=== PATIENT | male | born 1955 | race Caucasian/White ===

== ENCOUNTER 2016-05-15 06:17 | Inpatient (IN) | payer BC ==
[2016-04-16 12:51] VITALS: BMI 38.0
[2016-04-16 13:03] LABS: BASO % 0.5 %; BASO ABS # 0.04 K/uL (0-0.2); COMPLETE YES; EOS % 1.5 %; IG% 0.2 %; LYMPH % 25.2 %; LYMPH ABS # 2.18 K/uL (1.2-3.4); MEAN CELL VOLUME 92.3 fL (80-100); MEAN CORPUSCULAR HGB CONC 34.7 g/dl (32-36); MEAN PLATELET VOLUME 9.3 fL (7.4-10.4); MONO % 8.9 %; NEUT % 63.7 %; PLATELET COUNT 231 K/uL (130-400); RED BLOOD COUNT 4.66 M/uL (4.7-6.1); WHITE BLOOD COUNT 8.64 K/uL (4.8-10.8)
--- NOTE | 2016-04-16 13:20 | PAT Medication Instructions ---
Service Date Apr 16, 2016. Current Home Medication List Acetaminophen (Tylenol), 1,000 MG PO BID Aspirin (Aspirin Ec), 81 MG PO QPM Atenolol (Tenormin), 100 MG PO BID Etodolac (Etodolac), 1 TAB PO BID Fish Oil ([employer]euser-3), 1 CAP PO BID Erqpzrjscmy-Dqzodsqrzmd-Ago C- (Glucosamine Chondroitin), 1 TAB PO QPM Hctz/Losartan (Hyzaar 25MG/100MG), 1 TAB PO QPM Omeprazole (Prilosec), 20 MG PO QPM Simvastatin (Zocor), 80 MG PO QPM Medication Instructions For Your Scheduled Surgery - Hold the following medications 2 weeks prior to surgery: Fish Oil (We[employer]haeuser-3), 1 CAP PO BID Bjpciyepxxl-Hhlibniiwez-Eug C- (Glucosamine Chondroitin), 1 TAB PO QPM - Hold the following medications the morning of surgery: Etodolac (Etodolac), 1 TAB PO BID (otherwise okay to continue per surgeon) - Take the following medications the morning of surgery with a sip of water OTHERWISE NOTHING TO EAT OR DRINK AFTER MIDNIGHT: Atenolol (Tenormin), 100 MG PO BID Acetaminophen (Tylenol), 1,000 MG PO BID (okay to take if needed up to 4 hours prior to surgery) - Take the following medications as scheduled the night before surgery: Omeprazole (Prilosec), 20 MG PO QPM Simvastatin (Zocor), 80 MG PO QPM Aspirin (Aspirin Ec), 81 MG PO QPM Atenolol (Tenormin), 100 MG PO BID Acetaminophen (Tylenol), 1,000 MG PO BID - DO NOT TAKE the following medications the night before surgery: Hctz/Losartan (Hyzaar 25MG/100MG), 1 TAB PO QPM If you have any questions please call us at [phone] (Melody Ruggiero PA-C ) or [phone] or [phone]
[2016-04-16 13:24] LABS: PROTHROMBIN TIME (PATIENT) 10.8 SECONDS (9.0-12.0)
--- NOTE | 2016-04-16 13:33 | DIAGNOSTIC IMAGING REPORT ---
CHEST 2 VIEWS ROUTINE CLINICAL HISTORY: Preoperative evaluation. COMPARISON STUDY: No previous studies for comparison. FINDINGS: Lung volumes are normal. Lungs are clear. There is no pneumothorax or pleural effusion. There is mild cardiomegaly. Pulmonary vascularity is normal. IMPRESSION: 1. No acute cardiopulmonary findings. 2. Mild cardiomegaly. Electronically signed by: David Demarco M.D. 04/16/2016 1:32 PM
[2016-04-16 13:45] LABS: ESTIMATED AVERAGE GLUCOSE 123 mg/dl; HA1C FLAG Normal (Normal)
[2016-04-16 13:52] LABS: BUN/CREATININE RATIO 15.2 (10-20); CREATININE 0.85 mg/dl (0.60-1.40)
[2016-04-16 14:04] LABS: CALCIUM 9.7 mg/dl (8.5-10.1)
--- NOTE | 2016-05-11 19:57 | HISTORY & PHYSICAL EXAMINATION ---
DATE OF ADMISSION: 05/15/2016 PREOPERATIVE HISTORY AND PHYSICAL EXAMINATION SUBJECTIVE CHIEF COMPLAINT: Left knee pain. HISTORY OF PRESENT ILLNESS: The patient is a 60-year-old male who presents with left knee pain that has been chronic and nontraumatic. He states that the symptoms are moderate to severe and aching in nature. He describes the pain at its lowest to 5/10. It is made worse with his daily activities. It is relieved with rest. He has been treated with cortisone injection, physical therapy and nonsteroidal inflammatory and he has failed these conservative therapies. PAST MEDICAL HISTORY: Significant for hypertension, hypercholesterolemia, GERD, and obesity. PAST SURGICAL HISTORY: He denies any surgeries in the past. SOCIAL HISTORY: He drinks 4-5 alcoholic beverages a day. He denies smoking or tobacco use. He denies IV drug use. He lives in a [address]. FAMILY HISTORY: Father has a history of coronary artery disease. MEDICATIONS: He is on atenolol 100 mg b.i.d., etodolac 500 mg b.i.d., simvastatin daily, omeprazole 20 mg daily, Hyzaar 100/25 daily, glucosamine 2 tablets daily, fish oil, aspirin 81 mg 1 tab daily. ALLERGIES: He has no known drug allergies. REVIEW OF SYSTEMS: Denies fevers, chills, headaches, weight loss, double vision, blurry vision, sore throat, numbness, tingling, tired, thirsty, hot and cold intolerance, abdominal pain, nausea, vomiting, diarrhea, heartburn, chest pain swelling to the legs or feet, frequency going to the bathroom, pain or burning with urination or incontinence, wheezing, cough, shortness of breath, depression, thoughts to harm themselves or others, anxiety or nervousness OBJECTIVE: GENERAL APPEARANCE: The patient is a 60-year-old male, appearing in no acute distress; well nourished, well dressed, well groomed. He is awake, alert and oriented x3. VITAL SIGNS: Height - he is 5 feet 8 inches. blood pressure 130/76. HEENT: Extraocular movements are intact. PERRLA No septal deviation. NECK: Supple, no lymphadenopathy, no JVD, no thyromegaly. HEART: Regular rate and rhythm. No murmurs or gallops. LUNGS: Clear to auscultation with no wheezing or rhonchi. ABDOMEN: Soft, nontender, nondistended, positive bowel sounds. No hepatosplenomegaly. EXTREMITIES: Paying particular attention to the left knee of the patient. He has pain along the medial joint line. He is able to extend to 0 degrees, flex to 120 degrees. His strength is 4/5, compared bilaterally. He has mildly positive valgus stress due to medial joint line narrowing. NEUROLOGIC: Cranial nerves II-XII are intact. Pulses were compared bilaterally and were equal IMAGING: X-ray of the knees shows advanced osteoarthritis of the medial joint compartment of both knees and near bone on bone findings, periarticular osteophyte formation and subchondral sclerosis. IMPRESSION: Severe endstage osteoarthritis of left knee PLAN: The patient is scheduled for a left total knee arthroplasty. He has failed conservative therapy such as cortisone injections, nonsteroidal anti-inflammatories, physical therapy, and viscosupplementation. He notes that the knee has decreased his quality of life and he wishes to advance with the surgery. Risks and benefits were discussed with the patient and included but not limited to blood clot, nerve damage, blood vessel damage, infection, failure to relieve all symptoms, revision surgeries and anesthesia risks. The patient understands these risks. All questions were answered to his satisfaction and he wishes to proceed MTDD
[~2016-05-15] VITALS: Ht 172.7 cm; Wt 113.8 kg
[2016-05-15] VITALS (10 sets, daily range): BP systolic 127–173; BP diastolic 66–95; PULSE 53–65; TEMP 34.7–36.7; O2SAT 94–98; Ht 172.7 cm; Wt 113.8 kg
[2016-05-15] MEDS: TRANEXAMIC ACID INJ 1,000 MG in SODIUM CHLORIDE 0.9% 100ML 100 ML IV SCH ×2 (06:00→06:30)
[~2016-05-15 06:17] MED LIST: ACET-1256 PO; ACETAMINOPHEN 500 MG TAB PO SCH; ASPI81TA28 PO; ATEN-175 PO; CEFAZOLIN 2000 MG/60 ML D5W 60 ML IV SCH; CeleBREX 200 MG CAP PO SCH; DEXAMETHASONE 4 MG TAB PO SCH; ETOD500T95 PO; FAMOTIDINE 20 MG TAB PO SCH; GABAPENTIN 300 MG CAP PO SCH; GLUCTAB7 PO; HYZ/10015 PO; LACTATED RINGER'S 1000ML IV SCH; LACTATED RINGER'S 500 ML IV SCH; METOCLOPRAMIDE HCL 10 MG TAB PO SCH; OMEG10007 PO; OXYCODONE HCL 10 MG TABCR (OXYCONTIN) PO SCH; PRLSR20 PO; ROPIVACAINE 5MG/ML 30 ML 150 MG, BUPIVACAINE/EPINEPHR 0.5% MPF 30 ML, KETOROLAC TROMETH... INFIL SCH; SIMV80TA2 PO
[2016-05-15] MEDS ORDERED: ORTHO JOINT ANESTHETIC ONE (06:52)
[2016-05-15] MEDS ORDERED: MIDAZOLAM HCL 1 MG/ML 2ML VIAL ONE ×2 (06:53→10:47)
[2016-05-15] MEDS ORDERED: FENTANYL CITRATE INJ 50 MCG/1 ML 2 ML VIAL ONE (06:54)
--- NOTE | 2016-05-15 07:00 | History & Physical Bridge Note ---
H&P Re-Evaluation Bridge Note: I have examined the patient, reviewed the History & Physical and in the interval since the performance of the History & Physical I have noted the following changes of clinical significance: No changes noted
[2016-05-15] MEDS ORDERED: BUPIVACAINE 0.5 % 5 MG/1 ML PF 10ML VIAL ONE (07:19)
[2016-05-15] MEDS ORDERED: BUPIVACAINE 0.25% 30 ML VIAL ONE (07:19)
[2016-05-15] MEDS ORDERED: HYDROmorphone INJ 2 MG/ML SYR/VIAL IV PRN (07:45)
[2016-05-15] MEDS ORDERED: EpHEDrine SULFATE INJ 50 MG/ML AMP IV PRN (07:45)
[2016-05-15] MEDS ORDERED: PHENYLEPHRINE 100MCG/ML 5ML SYR IV PRN (07:45)
[2016-05-15] MEDS ORDERED: ATROPINE SULFATE 0.1 MG/ML 5ML SYR IV PRN (07:45)
[2016-05-15] MEDS ORDERED: ONDANSETRON INJ 2 MG/ML 2 ML VIAL IV PRN ×2 (07:45→11:30)
[2016-05-15] MEDS ORDERED: PROPOFOL IV EMULSION 10 MG/ML 20 ML VIAL IV ONE (10:09)
[2016-05-15] MEDS ORDERED: BACITRACIN 50000 UNIT VIAL IR ONE (10:19)
[2016-05-15] MEDS ORDERED: POVIDONE-IODINE OP SOLN 30 ML BTL TOP ONE (10:47)
[2016-05-15] MEDS ORDERED: MAGNESIUM HYDROXIDE SUSP 30 ML UDC PO PRN (11:30)
[2016-05-15] MEDS ORDERED: ALUMINUM/MAGNESIUM/SIMETH (MAALOX MAX) 30 ML UDC PO PRN (11:30)
[2016-05-15] MEDS ORDERED: TAMSULOSIN HCL 0.4 MG CAP PO PRN (11:30)
[2016-05-15] MEDS ORDERED: ZOLPIDEM TARTRATE 5 MG TAB PO PRN (11:30)
[2016-05-15] MEDS ORDERED: DiphenhydrAMINE HCL 50 MG/ML VIAL IV PRN (11:30)
[2016-05-15] MEDS ORDERED: MoRPHine SULFATE 2 MG/ML CARP IV PRN (11:30)
[2016-05-15] MEDS ORDERED: BISACODYL 10 MG SUPP PR PRN (11:30)
--- NOTE | 2016-05-15 11:48 | DIAGNOSTIC IMAGING REPORT ---
LEFT KNEE 2 VIEWS History: Left total knee arthroplasty. Degenerative arthritis. Postop. FINDINGS: The patient is status post a left total knee arthroplasty. The hardware is intact. No fracture or dislocation. Skin leon and surgical drains are in place. IMPRESSION: Left total knee arthroplasty. No evidence for hardware complication. Electronically signed by: Luis Manuel Patel M.D. 05/15/2016 11:46 AM Dictated Date/Time: 05/15/2016 11:46 AM
--- NOTE | 2016-05-15 12:27 | [facility] Post Operative Brief Note ---
Immediate Operative Summary Operative Date May 15, 2016. Pre-Operative Diagnosis Severe end stage osteoarthritis of left knee Post-Operative Diagnosis Severe end stage osteoarthritis of left knee Procedure(s) Performed Left Total Knee Arthroplasty Surgeon Dr. Enriquez Cosmetic Counselor Surgeon(s) JOHNNA De Leon Estimated Blood Loss 50ml Findings above Specimens A) Left knee- bone & tissue Drains 1 hemovac Anesthesia spinal Complication(s) None Disposition Recovery Room / PACU
[2016-05-15] MEDS ORDERED: MoRPHine SULFATE 10 MG/ML CARP/VIAL IV PRN (12:30)
[2016-05-15] MEDS ORDERED: MoRPHine SULFATE 4 MG/ML 1 ML CARP\\VIAL IV PRN (12:30)
--- NOTE | 2016-05-15 12:34 | Anesthesiology Progress Note ---
Anesthesia Post Op Note Date & Time May 15, 2016 at 12:33 Vital Signs Pain Intensity: 0.0 Vital Signs Past 12 Hours Date Time Temp Pulse Resp B/P Pulse Ox O2 Delivery O2 Flow Rate FiO2 05/15/16 12:22 34.7 53 20 147/81 98 Nasal Cannula 2.0 05/15/16 12:19 97 Nasal Cannula 2.0 05/15/16 12:17 Nasal Cannula 2.0 05/15/16 11:50 36.5 56 18 153/76 97 Nasal Cannula 2.0 05/15/16 11:30 36.0 61 23 135/76 96 Nasal Cannula 2 05/15/16 11:20 60 22 130/76 96 Nasal Cannula 2 05/15/16 11:12 36.7 65 20 131/74 97 Nasal Cannula 2 05/15/16 06:49 36.4 56 20 173/95 95 Room Air Notes Mental Status: alert / awake / arousable, participated in evaluation Pt Amnestic to Procedure: Yes Nausea / Vomiting: adequately controlled Pain: adequately controlled Airway Patency, RR, SpO2: stable & adequate BP & HR: stable & adequate Hydration State: stable & adequate Anesthetic Complications: no major complications apparent
[2016-05-15] MEDS: D5W AND 1/2NSS + 20MEQ KCL 1,000 ML IV SCH ×2 (12:48→22:31)
[2016-05-15] MEDS: FERROUS GLUCONATE 324 MG TAB PO SCH ×2 (13:14→17:39)
[2016-05-15] MEDS: ACETAMINOPHEN 500 MG TAB PO SCH ×2 (13:56→22:14)
--- NOTE | 2016-05-15 14:44 | OPERATIVE REPORT ---
DATE OF OPERATION: 05/15/2016 PREOPERATIVE DIAGNOSIS: Left knee degenerative joint disease. POSTOPERATIVE DIAGNOSIS: Same. PROCEDURE: Left total knee arthroplasty. SURGEON: Dr. Remington Enriquez. PROOF PRESS OPERATOR: JOHNNA De Leon and Willam Garcia PA-C ANESTHESIA: Spinal with adductor canal block. IMPLANTS: Zamudio \T\ Nephew Journey version II, femur 6, tibia 6, poly 9, and patella 35 oval. DRAINS: One medium Hemovac. ESTIMATED BLOOD LOSS: 50 mL. COMPLICATIONS: None. INDICATIONS: The patient is a 60-year-old male with long-standing pain in left knee. He has failed conservative measures including cortisone injection, physical therapy, and anti-inflammatory medications. X-rays demonstrated a significant varus deformity of the left knee and adkn-fq-veic medial compartment. With failing conservative measures, he wished to proceed with left total knee arthroplasty. Risks, benefits and alternatives to surgery including but, not limited to infection, DVT, pain, stiffness, need for revision surgery, failure to relieve all symptoms, damage to blood vessels, damage to nerves, and risks of anesthesia were discussed with the patient and he wished to proceed. DESCRIPTION OF PROCEDURE: The patient was identified, laterality was confirmed and marked. He received a preoperative antibiotic as well as a spinal anesthetic and an adductor canal block. He was transferred to the operating room and placed in the supine position. A well-padded tourniquet was placed on the left thigh and limb was prepped and draped in the usual sterile manner with ChloraPrep. Limb was exsanguinated and tourniquet was inflated. I made a longitudinal anterior approach to the knee, sharply incising the skin utilizing Bovie electrocautery as well as Aquamantys to achieve hemostasis. I made a medial parapatellar arthrotomy and mobilized the patella laterally. I excised the synovium off the anterior femur and I excised the anterior horns of the medial and lateral meniscus. I elevated the deep MCL off of the medial tibia and pinned in place the distal femoral cutting guide, which is a patient matched. I made my distal femoral resection and then pinned into place a 5-in-1 size-6 femoral cutting guide. I made my anterior, posterior and chamfer cuts. I then removed the remaining portions of the menisci as well as the cruciates. We then pinned into place the patient matched tibial guide and I made my tibial resection. I then sized initially for a size 7 and then downsized to a size 6 tibia, set appropriate rotation and checked it with the alignment perry and pinned into place and cut for the post. I then utilized a lamina pot filler and removed posterior osteophytes off of the femur. I then placed the trial femoral component into place, reamed and cut for the trochlear component, placed the trochlear component into position and a trial with a 9 poly. We had good soft tissue balancing and good range of motion with a 9 poly. I then prepared the patella with freehand cut. I then sized and drilled for a size 35 patella. We had good tracking to the patella. No lateral release was required. All the trial components were removed. Wound was thoroughly irrigated. Deep tissues were anesthetized with an ortho mix solution and then with Simplex HV with gent cement, cemented my definitive components. This was Zamudio \T\ Nephew Journey version II, femur size 6, tibia size 6, poly 9, and patella 35 oval. A Betadine soak was then performed. Deep drain was placed. Arthrotomy was closed with interrupted #1 Vicryl sutures, subcutaneous tissue with interrupted 2-0 Vicryl suture and skin with leon. Sterile dressing was applied. All needle and sponge counts were correct at the end of the procedure. The patient was transferred to PACU in stable condition without apparent complication. I attest to the content of the Intraoperative Record and any orders documented therein. Any exceptio ns are noted below.
[2016-05-15] MEDS: CEFAZOLIN IV 2,000 MG in DEXTROSE 5% 50ML 50 ML IV SCH ×2 (16:55→23:40)
[2016-05-15] MEDS: OXYCODONE HCL IR 5 MG TAB (IMMEDIATE RELEASE) PO PRN (16:56)
[2016-05-15] MEDS: KETOROLAC TROMETHAMINE 30 MG/ML VIAL IV. SCH ×2 (17:40→23:40)
[2016-05-15] MEDS: ASPIRIN 81 MG ECTAB PO SCH (21:01)
[2016-05-15] MEDS: LOSARTAN/HCTZ 50-12.5 EA TAB PO SCH (21:01)
[2016-05-15] MEDS: SIMVASTATIN 80 MG TAB PO SCH (21:01)
[2016-05-15] MEDS: DOCUSATE SODIUM 100 MG CAP PO SCH (21:01)
[2016-05-15] MEDS: OXYCODONE HCL 10 MG TABCR (OXYCONTIN) PO SCH (21:02)
[2016-05-15] MEDS: SENNA 8.6 MG TAB PO SCH (21:03)
[2016-05-16] VITALS (7 sets, daily range): BP systolic 126–153; BP diastolic 56–82; PULSE 57–62; TEMP 36.3–36.5; O2SAT 94–97
[2016-05-16] MEDS: KETOROLAC TROMETHAMINE 30 MG/ML VIAL IV. SCH ×2 (05:29→11:49)
[2016-05-16] MEDS: ACETAMINOPHEN 500 MG TAB PO SCH ×3 (05:29→21:51)
[2016-05-16 06:45] LABS: HEMATOCRIT 32.5 % (42-52); MEAN CORPUSCULAR HEMOGLOBIN 31.4 pg (25-34); MEAN CORPUSCULAR HGB CONC 34.5 g/dl (32-36); PLATELET COUNT 191 K/uL (130-400); RED BLOOD COUNT 3.57 M/uL (4.7-6.1); WHITE BLOOD COUNT 15.68 K/uL (4.8-10.8)
[2016-05-16] MEDS: OXYCODONE HCL IR 5 MG TAB (IMMEDIATE RELEASE) PO PRN ×4 (07:28→21:52)
[2016-05-16 07:30] LABS: CALCIUM 8.4 mg/dl (8.5-10.1); CREATININE 0.8 mg/dl (0.60-1.40); POTASSIUM 3.9 mmol/L (3.5-5.1)
[2016-05-16] MEDS: ASPIRIN 81 MG ECTAB PO SCH ×2 (08:42→20:33)
[2016-05-16] MEDS: MULTIVITAMIN TAB PO SCH (08:42)
[2016-05-16] MEDS: PANTOprazole SOD 40 MG TAB PO SCH (08:42)
[2016-05-16] MEDS: FERROUS GLUCONATE 324 MG TAB PO SCH ×3 (08:42→17:23)
[2016-05-16] MEDS: DOCUSATE SODIUM 100 MG CAP PO SCH ×2 (08:42→20:31)
[2016-05-16] MEDS: D5W AND 1/2NSS + 20MEQ KCL 1,000 ML IV SCH (08:42)
[2016-05-16] MEDS: OXYCODONE HCL 10 MG TABCR (OXYCONTIN) PO SCH ×2 (08:42→20:33)
--- NOTE | 2016-05-16 10:05 | Orthopedic Progress Note ---
Orthopedic Progress Note Date of Service May 16, 2016. Subjective Post OP Day: 1 Reports: feeling well, pain controlled w PO medications (Pain seems to be controlled but the pain was increasing this AM.), Denies: SOB, calf pain, chest pain, light headedness, nausea / vomiting Objective calves soft nontender, N/V intact, capillary refill less than 2 sec., dressing C /D/I, A&O x3, toes mobile, hemovac drainage (750 cc total, 150 cc so far today.) Date Time Temp Pulse Resp B/P Pulse Ox O2 Delivery O2 Flow Rate FiO2 05/16/16 08:10 95 Room Air 05/16/16 07:43 36.4 59 23 131/64 95 Room Air 05/16/16 07:15 Room Air 05/16/16 03:15 36.5 59 18 147/75 96 Room Air 05/15/16 23:45 Room Air 05/15/16 23:25 36.4 63 18 140/72 96 Room Air 05/15/16 20:13 60 127/67 05/15/16 19:48 36.4 64 18 133/66 94 Room Air 05/15/16 16:30 Room Air 05/15/16 15:39 36.7 65 18 139/66 95 Room Air 05/15/16 14:53 36.6 63 156/85 97 Nasal Cannula 2.0 05/15/16 13:51 36.3 59 18 135/74 97 Nasal Cannula 2.0 05/15/16 12:54 36.3 56 20 147/70 98 Nasal Cannula 2.0 05/15/16 12:22 34.7 53 20 147/81 98 Nasal Cannula 2.0 05/15/16 12:19 97 Nasal Cannula 2.0 05/15/16 12:17 Nasal Cannula 2.0 05/15/16 11:50 36.5 56 18 153/76 97 Nasal Cannula 2.0 05/15/16 11:30 36.0 61 23 135/76 96 Nasal Cannula 2 05/15/16 11:20 60 22 130/76 96 Nasal Cannula 2 05/15/16 11:12 36.7 65 20 131/74 97 Nasal Cannula 2 Laboratory Results 24 Hours: Test 05/16/16 06:25 Hematocrit 32.5 % Hemoglobin 11.2 g/dL Assessment & Plan Assessment: POD #1 s/p left TKA Inhouse Planning Pain Management: Celebrex, Toradol, Oxycontin, Morphine, PO Tylenol, Oxy IR DVT Prophylaxis: TEDs, SCDs, ASA Discharge Planning Discharge Planning: home (Plan will be for d/c tomorrow.) Pain Management: Celebrex, Oxycontin, PO Tylenol, Oxy IR DVT Prophylaxis: TEDs, ASA
[2016-05-16] MEDS: MoRPHine SULFATE 2 MG/ML CARP IV PRN ×2 (20:05→20:26)
[2016-05-16] MEDS: LOSARTAN/HCTZ 50-12.5 EA TAB PO SCH (20:32)
[2016-05-16] MEDS: SIMVASTATIN 80 MG TAB PO SCH (20:32)
[2016-05-16] MEDS: SENNA 8.6 MG TAB PO SCH (20:32)
[2016-05-16] MEDS: CeleBREX 200 MG CAP PO SCH (20:34)
[2016-05-17] MEDS: OXYCODONE HCL IR 5 MG TAB (IMMEDIATE RELEASE) PO PRN ×3 (02:52→11:25)
[2016-05-17] MEDS: ACETAMINOPHEN 500 MG TAB PO SCH (05:14)
[2016-05-17 08:12] VITALS: BP 133/66; PULSE 64; TEMP 36.4; O2SAT 97
--- NOTE | 2016-05-17 08:30 | Orthopedic Progress Note ---
Orthopedic Progress Note Date of Service May 17, 2016. Subjective Post OP Day: 2 Reports: feeling well, pain controlled w PO medications (Pain at the superior aspect of the knee/distal quadricep. Overall controlled.), Denies: SOB, calf pain, chest pain, complaints, light headedness, nausea / vomiting Objective calves soft nontender, N/V intact, capillary refill less than 2 sec., dressing C /D/I (Small cracks in the Silverlon dressing. Replacement dressing already ordered.), A&O x3, toes mobile Date Time Temp Pulse Resp B/P Pulse Ox O2 Delivery O2 Flow Rate FiO2 05/17/16 08:12 36.4 64 18 133/66 97 Room Air 05/17/16 07:51 36.4 61 18 96 Room Air 05/17/16 07:10 Room Air 05/16/16 23:30 Room Air 05/16/16 23:13 36.4 61 18 139/61 96 Room Air 05/16/16 15:45 Room Air 05/16/16 15:23 36.3 62 23 126/56 94 Room Air 05/16/16 12:19 36.3 57 22 149/82 97 Room Air 05/16/16 10:39 61 95 Assessment & Plan Assessment: POD #2 s/p left TKA Inhouse Planning Pain Management: Celebrex, Toradol, Oxycontin, Morphine, PO Tylenol, Oxy IR DVT Prophylaxis: TEDs, SCDs, ASA Discharge Planning Discharge Planning: home (home today) Pain Management: Celebrex, Oxycontin, PO Tylenol, Oxy IR DVT Prophylaxis: TEDs, ASA
[2016-05-17] MEDS ORDERED: ASPEC81 PO (08:32)
[2016-05-17] MEDS ORDERED: CLB200 PO (08:32)
[2016-05-17] MEDS ORDERED: ONDA8TAB6 PO (08:32)
[2016-05-17] MEDS ORDERED: RXC5 PO (08:32)
[2016-05-17] MEDS ORDERED: ACET-1138 PO (08:32)
[2016-05-17] MEDS ORDERED: OXYSR10 PO (08:32)
--- NOTE | 2016-05-17 08:34 | Discharge Instructions ---
Discharge Instructions Admission Reason for Admission: Left Knee Osteoarthritis Discharge Discharge Diagnosis / Problem: left knee osteoarthritis Discharge Goals Goal(s): Decrease discomfort, Improve function Activity Recommendations Activity Limitations: as noted below Lifting Limitations: until after follow-up appointment Exercise/Sports Limitations: until after follow-up appointment May Resume Sexual Activity: when tolerated Shower/Bathe: may shower/bathe in 3 days (Keep Silverlon dressing in place.) Driving or Machine Use: When cleared by Dr. Enriquez's clinic. Weightbearing Status: Left weightbearing (as tolerated) . Instructions / Follow-Up Instructions / Follow-Up ACTIVITY RECOMMENDATIONS: SELF CARE INSTRUCTIONS AFTER TOTAL KNEE REPLACEMENT A. You may need to continue a physical therapy program after discharge from the hospital. There are several options available to you. Your doctor will assist you in selecting the best one for you. 1. An out-patient facility 3 times a week for therapy. 2. Home therapy for 1 to 2 weeks with outpatient therapy to follow. 3. Continue working on all exercises taught by physical therapy three times a day for 20 minutes on non-therapy days. Your goals should be to increase the bending of your knee to 90 degrees and beyond and to fully straighten your knee. Ice and elevate knee after exercise. B. Weight as tolerated with a walker or as instructed by your physician. C. It is okay to shower if minimal to no drainage from incision. No Baths. Do not soak wound. D. Make walking a part of your daily routine. Be up as much as comfortable with rest periods throughout the day. Rest with leg elevation is very important. Use the ice wrap frequently for the first 3-4 weeks. E. There are no restrictions on activities. You may ride in a car, shop, participate in tung nut grower and all social activities. F. Wear the long elastic stockings (ZAHIRA hose) 20 hours a day for one month after surgery. They can be removed several times a day for laundering and when showering. G. Silverlon- This is a large adhesive bandage that contains silver ions. This helps your incision heal by fighting off bacteria and protecting it from the outside environment. You are permitted to shower with this dressing. This will remain on your incision for 7 days and then should be removed. Some visible blood or drainage through the dressing window is normal. If there is significant drainage or leaking noted before the 7 days notify your doctor's office immediately. Once removed, keep incision clean and dry. If there is any drainage or redness noted, please call your surgeon. SPECIAL CARE INSTRUCTIONS: VERY IMPORTANT TO READ AND REVIEW A. Take Coumadin, Xarelto, Aspirin or Lovenox (blood thinning medications) as directed by your doctor. If on Coumadin, have a pro-time (blood test) drawn according to your doctor's instructions. This will tell the doctor how well the Coumadin is thinning your blood. B. There are a few signs you need to watch for after you are home. Call [facility] if you notice any of the followin. Increased severe knee pain. Some pain is expected especially when you exercise. 2. Increased swelling in your leg or knee; pain or swelling of the calf muscle in either lower leg. 3. Any redness or fluid drainage from the incision. 4. Shortness of breath or chest pain. 5. A Temperature of 101 degrees F or greater. C. Please call [facility] at if you have any concerns or questions about your operation or recovery. The doctor or his nurse will return your call promptly. D. You must take antibiotics before dental work, bladder, bowel or other surgery. Your doctor will provide you with a permanent care to carry describing this precaution. FOLLOW UP VISIT: If appointment is not already scheduled: Please call [facility] to make a follow-up appointment for one month after your surgery at . Current Hospital Diet Patient's current hospital diet: Regular Diet Discharge Diet Recommended Diet: Regular Diet Procedures Procedures Performed: Left Total Knee Arthroplasty Pending Studies Studies pending at discharge: no Laboratory Results Hemoglobin A1c Test 04/16/16 12:28 Range/Units Estimated Average Glucose 123 mg/dl Hemoglobin A1c 5.9 H 4.5-5.6 % Medical Emergencies . Who to Call and When: Medical Emergencies: If at any time you feel your situation is an emergency, please call 911 immediately. . Non-Emergent Contact Non-Emergency issues call your: Surgeon Call Non-Emergent contact if: temperature is above 101, your pain is not controlled, your pain is worsening, wound has increased drainage, wound has increased redness, wound has increased pain . "Provider Documentation" section prepared by Ming Davis. VTE Core Measure Inpt VTE Proph given/why not?: Other Anticoagulation (Aspirin), T.E.D. Stockings
[2016-05-17] MEDS: FERROUS GLUCONATE 324 MG TAB PO SCH (08:39)
[2016-05-17] MEDS: OXYCODONE HCL 10 MG TABCR (OXYCONTIN) PO SCH (08:39)
[2016-05-17] MEDS: DOCUSATE SODIUM 100 MG CAP PO SCH (08:40)
[2016-05-17] MEDS: MULTIVITAMIN TAB PO SCH (08:40)
[2016-05-17] MEDS: CeleBREX 200 MG CAP PO SCH (08:40)
[2016-05-17] MEDS: ASPIRIN 81 MG ECTAB PO SCH (08:40)
[2016-05-17] MEDS: PANTOprazole SOD 40 MG TAB PO SCH (08:42)
== END 2016-05-17 12:11 | disposition home or self-care (01) | DRG 470 ==
LOC: ENRESERVTM → ENRESERVDT → C.ACU 06:17 → C.3E 11:20
PROVIDERS: ADMIT Orthopaedic Surgery; ATTEND Orthopaedic Surgery
PROC: 0SRD0J9 Replacement of Left Knee Joint with Synthetic Substitute, Cemented, Open Approach (ICD-10-PCS; principal; 2016-05-15 08:30)
DX: M17.12 Unilateral primary osteoarthritis, left knee (principal); K21.9 Gastro-esophageal reflux disease without esophagitis; E66.9 Obesity, unspecified; I10 Essential (primary) hypertension; E78.00 Pure hypercholesterolemia, unspecified; Z68.38 Body mass index [BMI] 38.0-38.9, adult; M54.2 Cervicalgia; M54.5 Low back pain; M54.6 Pain in thoracic spine; K44.9 Diaphragmatic hernia without obstruction or gangrene; E78.5 Hyperlipidemia, unspecified; M21.162 Varus deformity, not elsewhere classified, left knee; M25.512 Pain in left shoulder; M25.511 Pain in right shoulder; Z79.82 Long term (current) use of aspirin; Z79.1 Long term (current) use of non-steroidal anti-inflammatories (NSAID); Z79.899 Other long term (current) drug therapy